=== PATIENT | male | born 1990 | race African-American/Black ===

== ENCOUNTER 2018-09-14 13:38 | Inpatient (IN) | payer SELFPAY ==
[~2018-09-14] VITALS: Ht 162.6 cm; Wt 65.8 kg
[2018-09-14] MEDS ORDERED: ONDANSETRON HCL 4MG/2ML INJ IV STA (18:14)
[2018-09-14] MEDS ORDERED: PANTOPRAZOLE SODIUM 40 MG/VIAL IV STA (18:14)
[2018-09-14] MEDS ORDERED: SODIUM CHLORIDE 0.9% 1,000 ML IV ONE (18:14)
[2018-09-14 18:29] LABS: BASOPHILS % 0.9 % (0.0-2.0); EOSINOPHILS % 0.1 % (0.0-5.0); HEMATOCRIT. 43.8 % (42.0-52.0); HEMOGLOBIN. 14.5 g/dL (14.0-18.0); LYMPHOCYTES % 7.4 % (20.0-50.0); NEUTROPHILS % 87.6 % (40.0-76.0); PLATELET 283 x1000/uL (130-400); RED BLOOD CELL COUNT 4.98 mill/uL (4.7-6.1); RED CELL DISTRIBUTION WIDTH 13.9 % (11.6-14.6)
[2018-09-14 18:31] LABS: CLARITY URINE TURBID (CLEAR); COLOR URINE YELLOW (YELLOW); KETONES URINE TRACE (NEGATIVE); LEUKOCYTE ESTERASE URINE NEGATIVE (NEGATIVE); NITRITE URINE NEGATIVE (NEGATIVE); OCCULT BLOOD URINE NEGATIVE (NEGATIVE); PROTEIN URINE 1+ (NEGATIVE); SPECIFIC GRAVITY URINE 1.021 (1.005-1.030); UROBILINOGEN URINE 0.2 E.U./dL (0.2-1.0)
[2018-09-14 18:35] LABS: CHLORIDE 106 mEq/L (98-107)
[2018-09-14 18:44] LABS: ETHANOL BLOOD 221 mg/dL
[2018-09-14 18:46] LABS: INR 1.1
[2018-09-14] MEDS ORDERED: SODIUM CHLORIDE 0.9% 1000ML BAG (SEPSIS BOLUS) IV ONE (21:30)
[2018-09-14] MEDS: SODIUM CHLORIDE 0.9% 1,000 ML IV SCH (23:33)
[2018-09-14] MEDS ORDERED: DIPHENHYDRAMINE 50MG/ML VIAL IV PRN (23:45)
[2018-09-14] MEDS ORDERED: ACETAMINOPHEN 325MG TABLET PO PRN (23:45)
[2018-09-14] MEDS ORDERED: LORAZEPAM 2MG/ML CPJ IV PRN (23:45)
[2018-09-15] VITALS (7 sets, daily range): BP systolic 124–145; BP diastolic 76–101
[2018-09-15] MEDS: MORPHINE SULFATE 4 MG/ML CPJ (NOT FOR IM USE) IV PRN ×3 (00:57→20:57)
[2018-09-15] MEDS ORDERED: MVI, ADULT NO.1 10 ML, FOLIC ACID 1 MG, THIAMINE HCL 100 MG in SODIUM CHLORIDE 0.9% 1,0... IV SCH ×4 (02:00)
[2018-09-15 06:50] LABS: CHLORIDE 103 mEq/L (98-107)
[2018-09-15 06:57] LABS: BASOPHILS % 0.4 % (0.0-2.0); HEMOGLOBIN. 13.3 g/dL (14.0-18.0); MEAN CORPUSCULAR HEMOGLOBIN 28.5 pg (28.0-32.0); MEAN CORPUSCULAR VOLUME 87.9 fL (80.0-94.0); MEAN PLATELET VOLUME 7.9 fl (7.4-10.4); MONOCYTES % 7.5 % (2.0-8.0); NEUTROPHILS % 80.1 % (40.0-76.0); PLATELET 238 x1000/uL (130-400); RED BLOOD CELL COUNT 4.66 mill/uL (4.7-6.1); RED CELL DISTRIBUTION WIDTH 13.8 % (11.6-14.6)
[2018-09-15 07:04] LABS: PHOSPHORUS 3.4 mg/dL (2.5-4.9)
[2018-09-15] MEDS ORDERED: PANTOPRAZOLE SODIUM 40 MG/VIAL IV SCH (09:00)
[2018-09-15] MEDS: SODIUM CHLORIDE 0.9% 1,000 ML IV SCH ×2 (10:19→15:33)
[2018-09-15] MEDS ORDERED: INFLUENZA VIRUS VACCINE(AFLURIA) 0.5ML SYR IM ONE (12:00)
[2018-09-15] MEDS ORDERED: PNEUMOCOCCAL 23-VAL P-SAC VAC 0.5 ML IM ONE (12:00)
[2018-09-15] MEDS ORDERED: MAGNESIUM 2 G PREMIX 50 ML IV SCH (12:00)
[2018-09-15] MEDS: DEXT 5%/0.45% NACL KCL 10MEQ/L 1,000 ML IV SCH (20:57)
[2018-09-16] VITALS: BP 137/81
[2018-09-16 04:00] VITALS: BP 149/93
[2018-09-16] MEDS: MORPHINE SULFATE 4 MG/ML CPJ (NOT FOR IM USE) IV PRN ×3 (06:07→22:54)
[2018-09-16] MEDS: DEXT 5%/0.45% NACL KCL 10MEQ/L 1,000 ML IV SCH ×2 (06:09→17:14)
[2018-09-16 08:00] VITALS: BP 135/95
[2018-09-16 08:56] LABS: HEMOGLOBIN. 14.7 g/dL (14.0-18.0); RED BLOOD CELL COUNT 5.09 mill/uL (4.7-6.1)
[2018-09-16 08:57] LABS: HEMATOCRIT. 44.9 % (42.0-52.0); MEAN CORPUSCULAR VOLUME 88.1 fL (80.0-94.0); MEAN PLATELET VOLUME 8.2 fl (7.4-10.4); PLATELET 208 x1000/uL (130-400); RED CELL DISTRIBUTION WIDTH 13.7 % (11.6-14.6)
[2018-09-16] MEDS: PANTOPRAZOLE SODIUM 40 MG/VIAL IV SCH (09:56)
[2018-09-16 11:55] LABS: CHLORIDE 99 mEq/L (98-107)
[2018-09-16 11:59] LABS: PHOSPHORUS 1.6 mg/dL (2.5-4.9)
[2018-09-16 12:00] VITALS: BP 131/94
[2018-09-16 13:19] LABS: PLATELET ESTIMATE NORMAL
[2018-09-16 16:00] VITALS: BP 143/86
[2018-09-16] MEDS ORDERED: POTASSIUM PHOS,M-BASIC-D-BASIC 20 MMOL in DEXT 5% WATER 243.3333 ML IV NR (16:30)
[2018-09-16] MEDS: ONDANSETRON HCL 4MG/2ML INJ IV PRN (19:49)
[2018-09-16 20:00] VITALS: BP 141/94
[2018-09-17] VITALS: BP 126/79
[2018-09-17 04:00] VITALS: BP 128/77
[2018-09-17] MEDS: ONDANSETRON HCL 4MG/2ML INJ IV PRN (04:55)
[2018-09-17] MEDS: MORPHINE SULFATE 4 MG/ML CPJ (NOT FOR IM USE) IV PRN (04:58)
[2018-09-17 08:00] VITALS: BP 136/73
[2018-09-17] MEDS: PANTOPRAZOLE SODIUM 40 MG/VIAL IV SCH (09:17)
[2018-09-17 12:00] VITALS: BP 121/84
[2018-09-17 16:00] VITALS: BP 133/64
[2018-09-17 20:00] VITALS: BP 118/70
[2018-09-18] VITALS: BP 113/63
[2018-09-18 04:00] VITALS: BP 111/70
[2018-09-18 06:24] LABS: BASOPHILS % 0.3 % (0.0-2.0); HEMATOCRIT. 42.5 % (42.0-52.0); HEMOGLOBIN. 14.2 g/dL (14.0-18.0); LYMPHOCYTES % 16.4 % (20.0-50.0); MEAN CORPUSCULAR HEMOGLOBIN 29.4 pg (28.0-32.0); MEAN CORPUSCULAR VOLUME 87.9 fL (80.0-94.0); MEAN PLATELET VOLUME 8.6 fl (7.4-10.4); MONOCYTES % 7.8 % (2.0-8.0); NEUTROPHILS % 71.5 % (40.0-76.0); PLATELET 216 x1000/uL (130-400); RED BLOOD CELL COUNT 4.83 mill/uL (4.7-6.1); RED CELL DISTRIBUTION WIDTH 13.4 % (11.6-14.6)
[2018-09-18 07:06] LABS: CHLORIDE 97 mEq/L (98-107)
[2018-09-18 07:17] LABS: PHOSPHORUS 2.4 mg/dL (2.5-4.9)
[2018-09-18 08:00] VITALS: BP_SYST 106; BP_SYST 116; BP_DIAS 67; BP_DIAS 77
[2018-09-18] MEDS: PANTOPRAZOLE SODIUM 40 MG/VIAL IV SCH (08:10)
[2018-09-18 12:00] VITALS: BP 110/65
[2018-09-18 15:59] VITALS: BP 113/77
[2018-09-18 16:00] VITALS: BP 113/77
[2018-09-18] MEDS ORDERED: PANTOPRAZOLE 40MG DR TABLET PO SCH (16:42)
== END 2018-09-18 16:21 | disposition home or self-care (01) | DRG 241 ==
LOC: ER 13:38 → 6EST 19:25 → EDBEDREQ 19:26 → ENRESERV 23:24
PROVIDERS: ADMIT Internal Medicine; ATTEND Internal Medicine
DX: K29.20 Alcoholic gastritis without bleeding (principal); K85.20 Alcohol induced acute pancreatitis without necrosis or infection; F10.20 Alcohol dependence, uncomplicated; F17.200 Nicotine dependence, unspecified, uncomplicated; Z82.49 Family history of ischemic heart disease and other diseases of the circulatory system; Z23 Encounter for immunization
CPT/HCPCS: 36415; 71045; 74176; 80048; 83605; 83735; 84100; 90686; 90732; 96361; 96374; 96375; 99285; C1893; C9113; G0482; J2270; J2405; J3411; J3475; J3490; J7030; J7060